=== PATIENT | female | born 1985 | race Two or more races ===

== ENCOUNTER 2024-05-15 19:58 | Emergency (ER) | payer OTHER ==
[~2024-05-15] VITALS: Ht 177.8 cm; Wt 104.3 kg
[2024-05-15] MEDS ORDERED: ACETAMINOPHEN 500 MG GEL..CAP PO ONE ×2 (21:15→21:20)
[2024-05-15 21:45] LABS: MEAN CELL VOLUME 70.3 fL (80.00-100.00); MEAN CORPUSCULAR HEMOGLOBIN 23.5 pg (27.00-32.0); MEAN CORPUSCULAR HGB CONC 33.4 g/dl (32.0-36.0); PLATELET COUNT 132 K/uL (150-450); RED CELL DISTRIBUTION WIDTH 15.4 % (11.5-14.5)
[2024-05-15 22:07] LABS: ANION GAP 9 (10.0-20.0); BLOOD UREA NITROGEN 11 mg/dL (7-18); BUN CREA RATIO 12 (7.0-25.0); CALCIUM 8.7 mg/dL (8.5-10.1); CARBON DIOXIDE 29 mEq/L (21-32); CHLORIDE 105 mmol/L (98-107); CREATININE SERUM 0.95 mg/dL (0.55-1.02); GFR 65.49; GLUCOSE FASTING 108 mg/dL (65-100); OSMOLALITY SERUM 277 MOSM/KG (275-295); POTASSIUM 3.77 mEq/L (3.5-5.1); SODIUM 139 mmol/L (136-145)
[2024-05-15 22:11] LABS: PH,URINE 5.5 (5.0-8.0); URINE APPEARANCE Clear; URINE BILIRRUBIN Negative (NEGATIVE); URINE BLOOD Negative; URINE COLOR Yellow; URINE GLUCOSE Negative (NEGATIVE); URINE KETONE Negative (NEGATIVE); URINE LEUKOCYTE Trace; URINE NITRATE Negative; URINE PROTEIN Trace (NEGATIVE); URINE UROBILINOGEN 0.2 E.U./dl
[2024-05-15 22:14] LABS: URINE BACTERIA 813.8 uL (0.0-1933); URINE EPITHELIAL CELLS 46.8 uL (0.0-38.8); URINE RBC 40.5 uL (0.0-20.8); URINE WBC 25.8 uL (0.0-23.2)
[2024-05-15 22:14] LABS: HCG QUANTITATIVE < 1 mUI/mL (1-3)
[2024-05-15 22:28] LABS: URINE CAST 0.58 uL (0.0-1.40)
== END 2024-05-15 22:55 | disposition home or self-care (01) ==
LOC: ER 20:00
PROVIDERS: General Practice
DX: B34.9 Viral infection, unspecified (principal); Z20.822 Contact with and (suspected) exposure to COVID-19